=== PATIENT | male | born 1955 | race Caucasian/White ===

== ENCOUNTER 2024-03-17 09:37 | Outpatient (OUT) | payer MEDICARE, SELFPAY ==
--- NOTE | 2024-03-17 09:53 | XR_ITS ---
The [address] [address] Patient Name: KELLI RODRÍGUEZ MRN: [id number] date: 1955 Sex: M Assigned Patient Location: [facility] Current Patient Location: LAB Accession/Order Number: [id number] Exam Date: 03/17/2024 10:08 Report Date: 03/20/2024 14:08 At the request of: JAMES GARZON Procedure: XR abdomen 1V EXAMINATION: XR abdomen 1V HISTORY: Kidney Stones N20.0 COMPARISON: 05/19/2022 FINDINGS: KIDNEY/URETER - RIGHT: No visible renal or ureteral calcifications. KIDNEY/URETER - LEFT: Punctate left nephrolithiasis PELVIS: No visible ureteral calcifications. Any visible calcifications favor phleboliths. BOWEL: No abnormal dilation or deviation. BONES: No acute abnormality. OTHER: Negative. No abnormal gaseous collections. XR/XR abdomen 1V IMPRESSION: Punctate left nephrolithiasis Electronically authenticated by: RAJIV CALHOUN Date: 03/20/2024 14:08
== END 2024-03-17 09:38 | disposition home or self-care (01) ==
PROVIDERS: PCP Family Medicine; Visit Provider Urology
DX: N20.0 Calculus of kidney (principal)
CPT/HCPCS: 74018